=== PATIENT | female | born 2000 | race American Indian/Alaskan Native ===

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

== ENCOUNTER 2020-04-30 22:40 | Emergency (ER) | payer SELFPAY ==
[2020-05-01 00:29] VITALS: BP 117/72
== END 2020-05-01 04:20 | disposition left against medical advice (07) ==
LOC: ED 22:40
DX: R10.2 Pelvic and perineal pain (principal); Z53.21 Procedure and treatment not carried out due to patient leaving prior to being seen by health care provider